=== PATIENT | female | born 2000 | race Hispanic/Latino ===

== ENCOUNTER 2021-12-05 07:00 | Outpatient (RCR) | payer BC | END 2021-12-07 | LOC: PT 07:00 | PROVIDERS: ATTEND Specialist | DX: S83.005A Unspecified dislocation of left patella, initial encounter (principal) ==

== ENCOUNTER 2021-12-13 06:55 | Outpatient (RCR) | payer BC | END 2022-01-06 | LOC: PT 06:55 | PROVIDERS: ATTEND Specialist | DX: S83.005A Unspecified dislocation of left patella, initial encounter (principal) ==